=== PATIENT | female | born 1955 | race Caucasian/White ===

== ENCOUNTER → 2021-03-01 | Outpatient (CLI) | payer MEDICARE ==
[~2021-03-01] MED LIST: ATOR40TA PO; DILT120T4 PO; FUROSEMIDE 20 MG/2 ML ONE; GLYB5TAB3 PO; LOSA50TA14 PO; METF500T17 PO
== END | disposition home or self-care (01) ==
LOC: RAD 12:31
PROVIDERS: ATTEND Physician Assistant
DX: N26.1 Atrophy of kidney (terminal) (principal); N12 Tubulo-interstitial nephritis, not specified as acute or chronic
CPT/HCPCS: 78708; A9562; J1940